=== PATIENT | female | born 1950 | race Caucasian/White ===

== ENCOUNTER → 2023-09-04 11:58 | Outpatient (REF) | payer MEDICARE, OTHER, SELFPAY | LOC: MRI 3T 11:58 | PROVIDERS: ATTENDING PHYSICIAN Physician Assistant; FAMILY PHYSICIAN Family Medicine | DX: M54.12 Radiculopathy, cervical region (principal); Z98.1 Arthrodesis status | CPT/HCPCS: 72156; A9575 ==

== ENCOUNTER 2023-10-06 17:41 | Emergency (ER) | payer MEDICARE, OTHER, SELFPAY ==
[2023-10-06 17:51] VITALS: BP 132/71
[2023-10-06 18:18] LABS: % Basophils 0.9 % (0-2); % Eosinophils 1.2 % (0-6); % Immature Granulocytes 0.2 % (0-0.5); % Lymphocytes 43.4 % (20.5-51.1); % Monocytes 7.3 % (1.7-9.3); Absolute Basophils 0.1 10^3/uL (0-0.2); Absolute Eosinophils 0.1 10^3/uL (0-0.7); Absolute Lymphocytes 2.5 10^3/uL (1.2-3.4); Absolute Monocytes 0.4 10^3/uL (0.1-0.6); Absolute Neutrophils 2.7 10^3/uL (1.4-6.5); Hematocrit 39.4 % (37.0-47.0); Hemoglobin 13.3 g/dL (12.0-16.0); Mean Corp Hgb Conc. 33.8 g/dL (33.0-37.0); Mean Corpuscular Hgb 28.9 pg (27.0-31.0); Mean Corpuscular Volume 85.5 fL (81.0-99.0); Mean Platelet Volume 9.2 fL (7.4-10.4); Nucleated Red Blood Cells % 0 %; Platelet Count 328 10^3/uL (130-400); Red Blood Cell Count 4.61 10^6/uL (4.20-5.40); White Blood Cell Count 5.8 10^3/uL (4.8-10.8)
[2023-10-06 18:24] LABS: Urine Albumin Negative (Neg - Trace); Urine Bilirubin 1+ (Negative); Urine Character Clear (Clear); Urine Color Amber; Urine Glucose Negative (Negative); Urine Ketone Negative (Negative); Urine Leukocyte Trace (Negative); Urine Nitrite Positive (Negative); Urine Occult Blood Negative (Negative); Urine Specific Gravity 1.015 (<1.030); Urine Urobilinogen 1+ (Neg - 1+)
[2023-10-06 18:34] LABS: ALT (SGPT) 31 U/L (0-35); AST (SGOT) 32 U/L (14-36); Albumin 4.2 g/dl (3.5-5.0); Alkaline Phosphatase 102 U/L (38-126); Blood Urea Nitrogen 14 mg/dl (7-17); Calcium 9.1 mg/dl (8.4-10.2); Carbon Dioxide 27 mmol/L (22-30); Chloride 101 mmol/L (98-107); Glucose 104 mg/dl (70-99); Sodium 135 mmol/L (135-145); Total Bilirubin 0.6 mg/dl (0.2-1.3); Urine Bacteria Few (Negative); Urine Red Blood Cell None Seen /HPF (0-2); Urine White Cell 0-2 /HPF (0-5); eGFR > 60.00
[2023-10-06 19:24] VITALS: BP 135/72
[2023-10-06 19:26] VITALS: BMI 23.3
--- NOTE | 2023-10-06 20:49 | ED.GENMED ---
History of Present Illness
General
Chief Complaint: Abdominal Symptoms
Source: patient
Exam Limitations: none
Time Seen by Provider: 10/06/23 19:08
Travel History
Have you had any contact with someone who has COVID-19?: No
Do you have any symptoms of coronavirus? Fever > 100 degrees, chills, cough, shortness of breath, sore throat, loss of taste or smell, muscle aches, or headache?: No
History of Present Illness
History of Present Illness:
Patient with left lower quadrant flank pain to the back for 2 days. Recently was treated for UTI. Urinalysis at urgent care was negative. Was sent to the ER for further evaluation and testing.
Past History
Past History
ED Past Medical History: Cancer (Thyroid) and HTN
ED Past Surgical History: Orthopedic (Cervical fusion) and Other (Thyroidectomy)
Review of Systems
Review of Systems
All Other Systems: Not applicable
Constitutional: Denies fever
Cardiac: Reports no symptoms
ABD/GI: Denies abdominal pain
Phy Exam
Physical Exam
Physical Exam:
GENERAL: Alert and oriented in no apparent distress
EYE: Orbits normal.
NECK: Supple
CARDIAC: Regular rate and rhythm without any obvious murmurs.
LUNGS: Clear breath sounds,normal
ABDOMEN: Soft, without focal tenderness or distention. No CVA tenderness
NEUROLOGICAL: Alert and oriented , grossly non-focal
SKIN: Warm and dry, no rash or lesion, no discoloration, skin intact.
MUSCULOSKELETAL: No edema,no deformity.Good color
PSYCH: Normal and appropriate interaction.
Course
Orders/Labs/Results
Orders:
Orders
10/06/23 18:02
CMP [Comprehensive Metabolic Panel] Urgent
Complete Blood Count/With Diff Urgent
Urinalysis Reflex To Culture Urgent
Date Specimen was Collected: 10/06/23
Time Specimen was Collected: 17:58
Urine Microscopic Reflex Cult Urgent
Urine Culture Urgent
ADARSH Source: U
Specimen Description:
Date Specimen was Collected: 10/06/23
Time Specimen was Collected: 17:58
10/06/23 19:14
CT Abd/pel Without Iv Or Oral Urgent
Comment:
Reason For Exam: Left flank/groin pain
10/06/23 20:51
Ketorolac [Toradol] 30 mg IM NOW STA
Abnormal Lab Results
10/06/23
18:02
Glucose 104 H mg/dl
(70-99)
Urine Nitrite (Reflex) Positive A
(Negative)
Urine Bilirubin 1+ A
(Negative)
Leukocyte Esterase Rfl Trace A
(Negative)
Urine Bacteria (Reflex) Few A
(Negative)
10/06/23 18:02
10/06/23 18:02
Vital Signs
Initial and Last Documented VS:
Initial Vital Signs
Temp Pulse Resp BP Pulse Ox
98.1 F 68 16 132/71 98
10/06/23 17:51 10/06/23 17:51 10/06/23 17:51 10/06/23 17:51 10/06/23 17:51
Last Documented Vital Signs
Temp Pulse Resp BP Pulse Ox
98.1 F 60 16 136/70 94
10/06/23 17:51 10/06/23 21:04 10/06/23 17:51 10/06/23 21:04 10/06/23 21:04
*Radiology
Radiology exam reviewed: radiology read reviewed (No acute findings. Incidental gallstones)
*Pulse Oximetry
Patient hypoxic: no
*Critical Care Note
Total Time (30-74mins, 75-104mins- exclusive of procedures): Not Applicable
Update Note
Update Note:
Patient clinically remained stable and nontoxic. Serious etiology of her symptoms. She ports to her left sacroiliac area radiating to her groin. Possible musculoskeletal. Shingles is always in the differential although no rash at this time.
Symptomatic treatment and follow-up. Patient ambulated well at discharge and was in no distress
Of note urinalysis, has a positive nitrate trace leukocyte however 0-2 whites 10-15 squamous and few bacteria. Doubt UTI.
ED Attending Note
-
Portions of this chart may have been created with voice recognition software.� Occasional wrong word or��sound alike� substitutions may have occurred due to the inherent limitations of voice recognition software.
Discharge Plan
Departure
Patient Disposition: Home (Routine Discharge)
Date of Disposition: 10/06/23
Time of Disposition: 20:50
Patient with high blood pressure during this ER visit?: Yes
Discharge Problem:
Left flank pain
Instructions: Flank Pain (DC), BLOOD PRESSURE
Referrals:
Yosvany Ravi, DO [Family Provider] - Follow up in 2-3 days
Interventions
Interventions:
*Risk Screen - Suicide Last Done: 10/06/23 17:51
*General Assessment Last Done: 10/06/23 19:26
*Neglect/Abuse Screening Last Done: 10/06/23 17:51
ED- Fall Risk Assessment Last Done: 10/06/23 21:11
*ED COVID-19 Vaccine History Last Done: 10/06/23 17:51
*Nursing Disposition Last Done: 10/06/23 21:11
ZM-Zqmnlv-Hjfmrhxvng Assessment Last Done: 10/06/23 19:25
Discharge Date and Time
Discharge Date/Time: 10/06/23 21:12
[2023-10-06 21:04] VITALS: BP 136/70
[2023-10-06] MEDS: TORADOL 30 MG IM (21:06)
== END 2023-10-06 21:12 | disposition home or self-care (01) ==
LOC: EMR 17:41
PROVIDERS: Emergency Medicine; EMERGENCY PHYSICIAN Emergency Medicine; FAMILY PHYSICIAN Family Medicine
DX: R10.32 Left lower quadrant pain (principal); I10 Essential (primary) hypertension
CPT/HCPCS: 99284; 96372; 74176; 80053; 81003; 81015; 85025; 87086

== ENCOUNTER → 2025-01-28 13:01 | Outpatient (REF) | payer MEDICARE, OTHER, SELFPAY ==
[2025-01-28 14:29] LABS: Free T3 3.48 pg/ml (2.77-5.27)
[2025-01-28 14:43] LABS: TSH 0.41 uIU/ml (0.47-4.68)
[2025-02-07 13:07] LABS: Thyroglobulin <0.1 ng/mL (1.3-31.8); Thyroglobulin Antibodies <1.5 IU/mL (0.0-4.0)
== END ==
LOC: REG 13:01
PROVIDERS: ATTENDING PHYSICIAN Nurse Practitioner Family; FAMILY PHYSICIAN Family Medicine
DX: E03.9 Hypothyroidism, unspecified (principal)
CPT/HCPCS: 36415; 84432; 84439; 84443; 84481; 86376; 86800